=== PATIENT | female | born 1985 | race Caucasian/White ===

== ENCOUNTER 2017-03-13 13:06 | Inpatient (IN) | payer SELFPAY ==
[~2017-03-13] VITALS: Ht 170.1 cm; Wt 118.9 kg
--- NOTE | ~2017-03-13 | CON ---
[place], [place] REPORT OF CONSULTATION NAME: [facility] [id number] UNIT #: [id number] ROOM: 502 DOCTOR: NERY FRANCISCO MD BIRTHDATE: [birth year] DOS: 03/14/2017 REASON FOR CONSULTATION: Syncope. HISTORY OF PRESENT ILLNESS: The patient is a 32-year-old woman who does have a long history of anxiety and depression. She also has asthma and is being treated for COPD. She denies any previous history of heart attack or stroke. She believes that her sugar is low on occasion, although she is not being treated for diabetes. She believes that her blood pressure is frequently high when she is under stress. Yesterday, she was having lunch with family members. She states that everything was fine, but according to family members who were in the room while I was interviewing her, she was very upset over the fact that her brother had not shown up for work and this was casting bad light on her who had encouraged his employer to hire her brother. She apparently was yelling, swearing, etc. While this transpired, she began to feel lightheaded. She took her lunch dishes to a sink and stated that the room got dark and she fell to the floor. When she awakened, she was breathless and felt heavy in her chest, but this . Family members strongly encouraged her to go to the Emergency Room. She walked to her car, but fell indoor car because she became lightheaded again. Once she regained her composure, she drove herself to her mother's home and her mother drove over the rest of the way to the hospital. Symptoms have not recurred since that time. She has not had orthostatic hypotension in the hospital, but she does have episodes of hypertension. Laboratory studies showed no anemia. Blood sugar was 87. Electrolytes were normal. Magnesium level was normal. Serial troponin levels were normal. A serum test was negative. The patient was monitored overnight. Her electrocardiogram showed no acute changes. 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 There is no prolonged pause recorded and no tachyarrhythmia seen. PAST MEDICAL HISTORY: Includes: 1. Generalized anxiety disorder. The patient sees Dr. Cannon for this. 2. History of major depression. 3. COPD and asthma. 4. No history of diabetes, heart attack or stroke. 5. History of cigarette abuse. The patient has been abstinent of cigarettes for 2 years. FAMILY HISTORY: The patient's mother had a heart attack at age 43 and a stroke shortly thereafter. REVIEW OF SYSTEMS: The patient denies diplopia or loss of vision. She did have a syncopal episode documented above. She denies nausea or vomiting. She denies fevers, chills, sweats or recent weight change, but she is overweight. She denies orthopnea or PND. She denies focal weakness. She denies hemoptysis or hematemesis. She denies productive cough. She denies change in bowel or bladder habits. She denies hematuria or hematochezia. She denies any tarry [place], [place] REPORT OF CONSULTATION NAME: MIRIAM YANEZ UNIT #: [id number] ROOM: [facility] DOCTOR: NERY FRANCISCO MD BIRTHDATE: [birth year] stools. She denies peripheral edema, although she states that occasionally her ankles will look puffy if she has been . She denies any recent skin rashes. She denies that her medicines have been changed lately. MEDICATIONS: Include Symbicort 2 puffs daily, Zyrtec 10 mg daily, citalopram 60 mg daily, diazepam 5 mg p.r.n., Depakote 500 mg b.i.d., lamotrigine 25 mg tablets 2 tablets daily, omeprazole 40 mg daily, NuvaRing vaginal control monthly and albuterol p.r.n. by metered dose inhaler. ALLERGIES: SHE LISTS ALLERGIES TO CINNAMON, CLINDAMYCIN, SHELLFISH DERIVED PRODUCTS, PEAS AND ALSO HAS SEASONAL ALLERGIES. SOCIAL HISTORY: The patient is and lives with her . They have children. She was a smoker, but quit 2 years ago. She does not consume excessive amounts of alcohol. PHYSICAL EXAMINATION: GENERAL: The patient is an overweight white female who is awake, alert and oriented. VITAL SIGNS: Pulse is 76 and regular, blood pressure is 117/66. She is afebrile. She weighs 118.9 kg and has a body mass index of 41.1. HEENT: Normocephalic, atraumatic. Extraocular muscles are intact. Sclerae are clear. Pupils are equal, round and react to light. The oral mucosa is moist. Tongue is midline. NECK: Supple. She has no jugular distention. Carotids are full. I heard no bruits. She had no neck or supraclavicular masses. No thyromegaly. LUNGS: Respirations are unlabored. Her chest is clear to auscultation and percussion. She had no presacral edema and no chest wall tenderness. CARDIOVASCULAR: Her heart had a regular rhythm. She had no murmurs, rubs or gallops. The PMI was not displaced. There was no precordial heave, lift or thrill. ABDOMEN: Soft and normoactive without masses, organomegaly or bruits. EXTREMITIES: No edema. Peripheral pulses were easily palpated in the feet. IMAGING: I reviewed her electrocardiogram, which showed sinus rhythm and was a normal tracing. Chest x-ray was normal. CT scan of the head was unremarkable. LABORATORY DATA: Hemoglobin is 12.5, white count 7700, platelet count 305,000. Sodium 141, potassium 4.2, BUN 13, creatinine 0.69, magnesium 1.8. Troponin was negative x 3. Total beta hCG was unmeasurably low. IMPRESSION: 1. Syncopal episode, most likely vasovagal in origin (simple faint) triggered by an emotional response to family episode with her brother. 2. History of depression and anxiety. 3. History of chronic obstructive pulmonary disease. 4. Multiple medications for depression and anxiety, several of which (Celexa, valproic acid and Lamictal) can cause orthostatic hypotension or dizziness. I agree with Dr. Blandon that we should do an echocardiogram to check her for [place], [place] REPORT OF CONSULTATION NAME: MIRIAM YANEZ UNIT #: [id number] ROOM: 502 DOCTOR: NERY FRANCISCO MD BIRTHDATE: [birth year] structural heart disease. If that is normal, no further cardiac evaluation will be required as an inpatient. She may have a stress test as an outpatient if her symptoms of chest heaviness persisted, but I think that this would be a low yield study and would not keep her in the hospital to do this. We will review the results of her echocardiogram when it is available. In the meantime, I told her we will avoid caffeine, make sure she is hydrated well and discuss her medicines with her psychiatrist to see if adjustments are appropriate to help protect her from future events such as that they brought her to the hospital. I thank Dr. Blandon for asking our advice regarding her care. NERY FRANCISCO MD CM:CONSTR:REPORT OF CONSULTATION 1227 03/14/17 1623 interface
--- NOTE | ~2017-03-13 | WRIGHTHP ---
[place], [place] PATIENT HISTORY AND PHYSICAL EXAM NAME: MIRIAM YANEZ [facility] #: [id number] UNIT #: [id number] ROOM: 502 DOCTOR: SANDI LESTER MD BIRTHDATE: [birth year] DOS: 03/13/2017 HISTORY OF PRESENT ILLNESS: This patient is 32 years old. The patient is not known to me. She comes in after having a syncopal episode at home. The patient states that she felt slightly dizzy. She was eating after her lunch. She was in her kitchen, took the plate to the sink and next thing that she knew is she was on the floor. She woke up on the floor. She got up, called her mom and decided to go to the Emergency Room. On the way to her car, she had another episode which she almost blacked out and fell onto the car. She denies having any chest pains, palpitations, does not have any fever or chills, does not have any abdominal pain, nausea, emesis, does not have any lightheadedness, any blurred vision or double vision. PAST MEDICAL HISTORY: Significant for: 1. Chronic generalized anxiety disorder. 2. Major depression, mild. 3. History of tonsillectomy. MEDICATIONS: That she is on Symbicort 80/4.5 two puffs daily, Zyrtec 10 daily, Celexa she was on 60 mg daily, valproate 500 mg twice a day, diazepam 5 mg b.i.d., Lamictal 40 daily, omeprazole 40 daily, oral contraceptive daily. SOCIAL HISTORY: Nonsmoker, she quit smoking 2 years ago. Denies using any alcohol. She lives at home with her boyfriend. She does not have any children. FAMILY HISTORY: Her mother is in her 40s, has history of heart disease and a stroke. Father also has history of heart disease. One brother has palpitations. PHYSICAL EXAMINATION: GENERAL: On examination, she is awake, alert and oriented. VITAL SIGNS: Blood pressure is 117/66, pulse of 76, respirations 20, temperature 98.1. LUNGS: Diminished breath sounds, clear. HEART: Regular. No murmurs, gallops or rubs heard. ABDOMEN: Obese, soft. EXTREMITIES: Without any edema. No carotid bruit heard. ASSESSMENT AND PLAN: 1. The patient with a syncopal episode. The patient will be ordered an echocardiogram to rule out valvular heart disease. A cardiology consultation is obtained. Rule out MA protocol has come back negative. 2. Again, dizziness with syncopal episode. To rule out neurological causes of syncope, carotid Doppler will be ordered. CT of the head was negative. The patient was on high dose of citalopram, about 60 mg daily. The dosage was cut down to 20 mg. This may have caused some QT prolongation, but the EKG does not show any evidence of that today. Sinus rhythm is noted on the EKG. The patient is encouraged to follow with Dr. Dhaliwal and possibly cut down on her dose of citalopram as an outpatient. If the Cardiology clears, she can be discharged to home. [place], [place] PATIENT HISTORY AND PHYSICAL EXAM NAME: MIRIAM YANEZ UNIT #: [id number] ROOM: [facility] DOCTOR: SANDI LESTER MD BIRTHDATE: [birth year] SANDI LESTER MD CM:HISPHYS:PATIENT HISTORY AND PHYSICAL EXAMINATION 9 4 SANDI LESTER MD 03/14/17904 interface
[~2017-03-13 13:06] MED LIST: AEROSOL THERAPY1 DEV; AMOXIL500 MG PO; AUGMENTIN 875 M1 TA1 PO; AUGMENTIN 875875 MG PO; CELEXA20 MG PO; CIPRO750 MG PO; CLEOCIN HCL150 MG PO; CLEOCIN150 MG PO; CLINDAMYCIN HC300 MG PO; CYCLOBENZAPRINE10 MG PO; Duoneb 3ML 3 MG/3 ML NEB; EFFEXOR75 MG PO; EPIPEN 2-PAK1 MG/ML IJ; FLEXERIL10 MG PO; FLEXERIL5 MG PO; HYDROCODONE BIT1 T20 PO; IMITREX50 MG PO; MEDROL DOSEPAK4 MG PO; MOTRIN600 MG PO; Motrin,Rufen800 MG PO; NAPROSYN500 MG PO; NASONEX0.05 MG/AC NS; NUVARING1 ICR VG; PREDNISONE50 MG PO; PRILOSEC40 MG PO; PROAIR HFA0.09 MG/AC; Peridex 473 ML473 ML PO; ROBITUSSIN5 ML PO; SYMBICORT1 AER INH; VALIUM2 MG PO; VICODIN 5/500 505 MG PO; VOLTAREN50 M1 PO; ZITHROMAX250 MG PO; ZOFRAN ODT4 MG SL; ZYRTEC10 M2 PO
[2017-03-13 13:12] VITALS: BP 139/94
[2017-03-13] MEDS ORDERED: LAMOTRIGINE25 M1 PO (13:13)
[2017-03-13 13:23] LABS: BASO % 0.3 % (0.0-1.0); EOS # 0.2 10*3/uL (0.0-0.4); EOS % 2.5 % (1.0-4.0); HEMATOCRIT 37.2 % (37.0-47.0); HEMOGLOBIN 12.5 g/dl (12.0-16.0); LYMPH # 3.1 10*3/uL (1.3-4.4); LYMPH % 40.8 % (27.0-41.0); MEAN CELL VOLUME 88.8 fl (81.0-99.0); MEAN CORPUSCULAR HGB 29.8 pg (27.0-31.0); MEAN CORPUSCULAR HGB CONC 33.6 g/dl (33.0-37.0); MEAN PLATELET VOLUME 9.5 fl (9.6-12.3); MONO # 0.6 10*3/uL (0.1-1.0); MONO % 7.2 % (3.0-9.0); NEUT # 3.8 10*3/uL (2.3-7.9); NEUT % 49.1 % (47.0-73.0); PLATELET COUNT AUTOMATED 305 10*3/uL (130-400); RED BLOOD COUNT 4.19 10*6/uL (4.10-5.10); RED CELL DISTRI WIDTH 11.8 % (0-14.5); WHITE BLOOD COUNT 7.7 10*3/uL (4.8-10.8)
[2017-03-13 13:33] LABS: PROTHROMBIN TIME 10.2 SECONDS (9.0-12.4)
[2017-03-13 13:40] LABS: ALBUMIN 3.7 gm/dl (3.1-4.5); ALKALINE PHOSPHATASE 56 U/L (45-117); BILIRUBIN, TOTAL 0.4 mg/dl (0.2-1.0); BUN 13 mg/dl (7-24); CARBON DIOXIDE 24 mmol/L (21-32); CHLORIDE 105 mmol/L (98-107); EST GLOM FILT AFRICAN AMERICAN > 60 ml/min; GLUCOSE 87 mg/dL (65-99); MAGNESIUM 1.8 mg/dL (1.5-2.1); POTASSIUM 4.2 mmol/L (3.5-5.1); SGOT/AST 16 IU/L (3-35); SGPT/ALT 21 U/L (12-78); SODIUM 141 mmol/L (136-145); TOTAL PROTEIN 7.5 gm/dL (6.4-8.2)
[2017-03-13 13:41] LABS: TROPONIN I < 0.015 ng/ml (<0.045)
[2017-03-13 13:52] VITALS: BP 114/73
[2017-03-13 14:12] LABS: BILIRUBIN NEGATIVE (NEGATIVE); BLOOD NEGATIVE (NEGATIVE); CLARITY CLEAR (CLEAR); COLOR YELLOW (YELLOW); GLUCOSE NEGATIVE (NEGATIVE); KETONE NEGATIVE (NEGATIVE); LEUKO ESTERASE NEGATIVE (NEGATIVE); NITRITE NEGATIVE (NEGATIVE); PROTEIN NEGATIVE (NEGATIVE); UROBILINOGEN 0.2 E.U./dl (0.2-1.0)
[2017-03-13 14:18] LABS: BACTERIA 1+; RBC 0-2 rbc/hpf (0-2); URINE REFLEX COMMENT NO (NO)
[2017-03-13 16:00] VITALS: BP 119/75
[2017-03-13 18:00] VITALS: BP 123/87
[2017-03-13] MEDS ORDERED: DEPAKOTE500 MG PO (18:01)
[2017-03-14] VITALS: BP 162/91
[2017-03-14 00:16] VITALS: BP 130/72
[2017-03-14 04:03] VITALS: BP 154/71
[2017-03-14 08:00] VITALS: BP 117/66
[2017-03-14 12:00] VITALS: BP 128/69
[2017-03-14 16:00] VITALS: BP 126/70
== END 2017-03-14 17:24 | disposition home or self-care (01) | DRG 312 ==
LOC: ED 13:06 → 5E 15:19 → EDHOLD 15:19 → 5E 16:26
PROVIDERS: Emergency Medicine; Student in an Organized Health Care Education/Training Program
DX: R55 Syncope and collapse (principal); F32.9 Major depressive disorder, single episode, unspecified; R42 Dizziness and giddiness; J44.9 Chronic obstructive pulmonary disease, unspecified; F41.9 Anxiety disorder, unspecified; Z82.49 Family history of ischemic heart disease and other diseases of the circulatory system; Z82.3 Family history of stroke; Z88.1 Allergy status to other antibiotic agents; Z88.8 Allergy status to other drugs, medicaments and biological substances; Z91.013 Allergy to seafood; Z91.018 Allergy to other foods; Z87.891 Personal history of nicotine dependence

== ENCOUNTER 2017-03-25 17:06 | Emergency (ER) | payer SELFPAY ==
[~2017-03-25] VITALS: Ht 170.1 cm; Wt 117.9 kg
[~2017-03-25 17:06] MED LIST changes: +DEPAKOTE500 MG PO; +LAMOTRIGINE25 M1 PO
[2017-03-25 17:49] LABS: BASO % 0.1 % (0.0-1.0); EOS % 0.5 % (1.0-4.0); HEMATOCRIT 35.7 % (37.0-47.0); HEMOGLOBIN 11.9 g/dl (12.0-16.0); LYMPH # 2.9 10*3/uL (1.3-4.4); MEAN CELL VOLUME 90.8 fl (81.0-99.0); MEAN CORPUSCULAR HGB 30.3 pg (27.0-31.0); MEAN CORPUSCULAR HGB CONC 33.3 g/dl (33.0-37.0); MEAN PLATELET VOLUME 9.2 fl (9.6-12.3); MONO # 0.6 10*3/uL (0.1-1.0); MONO % 8.1 % (3.0-9.0); NEUT # 4.2 10*3/uL (2.3-7.9); PLATELET COUNT AUTOMATED 285 10*3/uL (130-400); RED BLOOD COUNT 3.93 10*6/uL (4.10-5.10); RED CELL DISTRI WIDTH 11.7 % (0-14.5); WHITE BLOOD COUNT 7.8 10*3/uL (4.8-10.8)
[2017-03-25 18:00] LABS: PROTHROMBIN TIME 10.1 SECONDS (9.0-12.4)
[2017-03-25 18:07] LABS: ALBUMIN 3.3 gm/dl (3.1-4.5); ALKALINE PHOSPHATASE 54 U/L (45-117); BILIRUBIN, TOTAL 0.2 mg/dl (0.2-1.0); BUN 17 mg/dl (7-24); C-REACTIVE PROTEIN 1.67 MG/DL (0-0.3); CARBON DIOXIDE 24 mmol/L (21-32); CHLORIDE 107 mmol/L (98-107); CPK 110 U/L (26-192); EST GLOM FILT AFRICAN AMERICAN > 60 ml/min; GLUCOSE 90 mg/dL (65-99); MAGNESIUM 2.1 mg/dL (1.5-2.1); POTASSIUM 4.3 mmol/L (3.5-5.1); SGOT/AST 18 IU/L (3-35); SGPT/ALT 24 U/L (12-78); SODIUM 139 mmol/L (136-145); TOTAL PROTEIN 6.9 gm/dL (6.4-8.2)
[2017-03-25 18:08] LABS: CKMB < 0.5 ng/ml (0.5-3.6); TROPONIN I < 0.015 ng/ml (<0.045)
== END 2017-03-26 04:06 | disposition short-term general hospital (02) ==
LOC: ED 17:06
PROVIDERS: Emergency Medicine
DX: R55 Syncope and collapse (principal); R42 Dizziness and giddiness; R06.02 Shortness of breath; I10 Essential (primary) hypertension; J45.909 Unspecified asthma, uncomplicated; Z88.1 Allergy status to other antibiotic agents; Z91.013 Allergy to seafood; Z91.010 Allergy to peanuts; Z91.018 Allergy to other foods; Z79.899 Other long term (current) drug therapy

== ENCOUNTER → 2017-04-24 | Outpatient (CLI) | payer OTHER ==
[2017-04-24 16:16] LABS: HEMATOCRIT 34.3 % (37.0-47.0); HEMOGLOBIN 11.7 g/dl (12.0-16.0); MEAN CELL VOLUME 89.1 fl (81.0-99.0); MEAN CORPUSCULAR HGB 30.4 pg (27.0-31.0); MEAN CORPUSCULAR HGB CONC 34.1 g/dl (33.0-37.0); MEAN PLATELET VOLUME 9.4 fl (9.6-12.3); RED BLOOD COUNT 3.85 10*6/uL (4.10-5.10); RED CELL DISTRI WIDTH 11.9 % (0-14.5); WHITE BLOOD COUNT 9.7 10*3/uL (4.8-10.8)
[2017-04-24 16:35] LABS: HEMOGLOBIN A1c 5.5 % (4.8-5.6)
[2017-04-24 16:46] LABS: ALBUMIN 3.6 gm/dl (3.1-4.5); ALKALINE PHOSPHATASE 54 U/L (45-117); BILIRUBIN, TOTAL 0.3 mg/dl (0.2-1.0); BUN 14 mg/dl (7-24); CARBON DIOXIDE 22 mmol/L (21-32); CHLORIDE 106 mmol/L (98-107); EST GLOM FILT AFRICAN AMERICAN > 60 ml/min; GLUCOSE 75 mg/dL (65-99); POTASSIUM 3.7 mmol/L (3.5-5.1); SGOT/AST 21 IU/L (3-35); SGPT/ALT 20 U/L (12-78); SODIUM 141 mmol/L (136-145)
[2017-04-24 16:52] LABS: THYROID STIM HORMONE (HS) 0.657 uIU/ml (0.358-4.75)
[2017-04-25 05:15] LABS: FREE T3 010389 3.6 pg/mL (2.0-4.4)
[2017-04-25 18:06] LABS: TESTOSTERONE FREE, (DIRECT) 0.4 pg/mL (0.0-4.2)
== END | disposition home or self-care (01) ==
LOC: LAB 16:03
PROVIDERS: Family Medicine
DX: E16.2 Hypoglycemia, unspecified (principal); R53.83 Other fatigue; E66.9 Obesity, unspecified

== ENCOUNTER → 2017-04-28 | Outpatient (CLI) | payer OTHER ==
[2017-04-29 09:10] LABS: RHEUMATOID ARTHRITIS FACTOR <10.0 IU/mL (0.0-13.9)
[2017-04-29 14:07] LABS: LYME AB/TOTAL IMMUNOGLOBULINS <0.91 ISR (0.00-0.90)
[2017-04-29 18:09] LABS: ARSENIC BLOOD 8 ug/L (2-23)
== END | disposition home or self-care (01) ==
LOC: LAB 16:41
PROVIDERS: Family Medicine
DX: E55.9 Vitamin D deficiency, unspecified (principal); R53.83 Other fatigue; R06.02 Shortness of breath; M79.1 Myalgia; M25.50 Pain in unspecified joint

== ENCOUNTER 2017-05-20 17:36 | Emergency (ER) | payer OTHER ==
[~2017-05-20] VITALS: Ht 172.7 cm; Wt 117.9 kg
[2017-05-20 18:16] LABS: BASO % 0.2 % (0.0-1.0); EOS # 0.3 10*3/uL (0.0-0.4); EOS % 3.1 % (1.0-4.0); HEMATOCRIT 38.7 % (37.0-47.0); HEMOGLOBIN 13.2 g/dl (12.0-16.0); LYMPH # 3.6 10*3/uL (1.3-4.4); LYMPH % 38.4 % (27.0-41.0); MEAN CELL VOLUME 87.8 fl (81.0-99.0); MEAN CORPUSCULAR HGB 29.9 pg (27.0-31.0); MEAN CORPUSCULAR HGB CONC 34.1 g/dl (33.0-37.0); MEAN PLATELET VOLUME 9.3 fl (9.6-12.3); MONO # 0.7 10*3/uL (0.1-1.0); MONO % 6.9 % (3.0-9.0); NEUT # 4.8 10*3/uL (2.3-7.9); NEUT % 51.2 % (47.0-73.0); PLATELET COUNT AUTOMATED 281 10*3/uL (130-400); RED BLOOD COUNT 4.41 10*6/uL (4.10-5.10); WHITE BLOOD COUNT 9.4 10*3/uL (4.8-10.8)
[2017-05-20 18:33] LABS: ALBUMIN 4.1 gm/dl (3.1-4.5); ALKALINE PHOSPHATASE 60 U/L (45-117); BILIRUBIN, TOTAL 0.4 mg/dl (0.2-1.0); BUN 13 mg/dl (7-24); CARBON DIOXIDE 25 mmol/L (21-32); CHLORIDE 103 mmol/L (98-107); EST GLOM FILT AFRICAN AMERICAN > 60 ml/min; GLUCOSE 85 mg/dL (65-99); POTASSIUM 3.6 mmol/L (3.5-5.1); SGOT/AST 18 IU/L (3-35); SGPT/ALT 23 U/L (12-78); SODIUM 137 mmol/L (136-145); TOTAL PROTEIN 7.9 gm/dL (6.4-8.2)
[2017-05-20 18:34] LABS: TROPONIN I < 0.015 ng/ml (<0.045)
[2017-05-20] MEDS ORDERED: NORVASC5 MG PO (22:20)
== END 2017-05-20 23:53 | disposition home or self-care (01) ==
LOC: ED 17:36
PROVIDERS: Emergency Medicine
DX: I10 Essential (primary) hypertension (principal); R00.2 Palpitations; R06.02 Shortness of breath; J45.909 Unspecified asthma, uncomplicated; Z91.018 Allergy to other foods; Z91.013 Allergy to seafood; Z91.010 Allergy to peanuts; Z79.899 Other long term (current) drug therapy

== ENCOUNTER 2017-05-27 20:31 | Emergency (ER) | payer OTHER ==
[~2017-05-27] VITALS: Ht 170.1 cm; Wt 117.9 kg
[~2017-05-27 20:31] MED LIST changes: +NORVASC5 MG PO
[2017-05-27] MEDS ORDERED: MEDROL DOSEPAK4 MG PO (23:46)
[2017-05-27] MEDS ORDERED: EPIPEN 2-P0.3 MG/0.3 IJ (23:47)
== END 2017-05-28 00:02 | disposition home or self-care (01) ==
LOC: ED 20:31
DX: T78.1XXA Other adverse food reactions, not elsewhere classified, initial encounter (principal); Z79.899 Other long term (current) drug therapy; Z88.1 Allergy status to other antibiotic agents; Z91.013 Allergy to seafood; Y92.9 Unspecified place or not applicable

== ENCOUNTER 2018-05-03 20:24 | Emergency (ER) | payer OTHER ==
[~2018-05-03] VITALS: Ht 170.1 cm; Wt 117.9 kg
[~2018-05-03 20:24] MED LIST changes: +EPIPEN 2-P0.3 MG/0.3 IJ
== END 2018-05-03 21:17 | disposition home or self-care (01) ==
LOC: ED 20:24
DX: S66.912A Strain of unspecified muscle, fascia and tendon at wrist and hand level, left hand, initial encounter (principal); Z79.899 Other long term (current) drug therapy; Z91.013 Allergy to seafood; Z88.1 Allergy status to other antibiotic agents; X50.1XXA Overexertion from prolonged static or awkward postures, initial encounter; Y93.89 Activity, other specified; Y92.89 Other specified places as the place of occurrence of the external cause; Y99.9 Unspecified external cause status

== ENCOUNTER 2018-06-24 16:54 | Emergency (ER) | payer OTHER ==
[~2018-06-24] VITALS: Wt 117.0 kg
[2018-06-24 17:51] LABS: EOS % 0.2 % (1.0-4.0); HEMATOCRIT 36.6 % (37.0-47.0); HEMOGLOBIN 12.1 g/dl (12.0-16.0); LYMPH # 1.8 10*3/uL (1.3-4.4); LYMPH % 32.4 % (27.0-41.0); MEAN CELL VOLUME 88.8 fl (81.0-99.0); MEAN CORPUSCULAR HGB 29.4 pg (27.0-31.0); MEAN CORPUSCULAR HGB CONC 33.1 g/dl (33.0-37.0); MEAN PLATELET VOLUME 9.1 fl (9.6-12.3); MONO # 0.5 10*3/uL (0.1-1.0); MONO % 9.2 % (3.0-9.0); NEUT # 3.2 10*3/uL (2.3-7.9); PLATELET COUNT AUTOMATED 310 10*3/uL (130-400); RED BLOOD COUNT 4.12 10*6/uL (4.10-5.10); RED CELL DISTRI WIDTH 12.9 % (0-14.5); WHITE BLOOD COUNT 5.6 10*3/uL (4.8-10.8)
[2018-06-24 18:07] LABS: ALBUMIN 3.8 gm/dl (3.1-4.5); ALKALINE PHOSPHATASE 59 U/L (45-117); BUN 9 mg/dl (7-24); CHLORIDE 108 mmol/L (98-107); LIPASE 126 U/L (73-393); POTASSIUM 3.9 mmol/L (3.5-5.1); SGOT/AST 16 IU/L (3-35); SGPT/ALT 29 U/L (12-78); SODIUM 141 mmol/L (136-145); TOTAL PROTEIN 7.8 gm/dL (6.4-8.2)
[2018-06-24 18:16] LABS: BILIRUBIN NEGATIVE (NEGATIVE); BLOOD TRACE-INTACT (NEGATIVE); CLARITY SL CLOUDY (CLEAR); COLOR YELLOW (YELLOW); GLUCOSE NEGATIVE (NEGATIVE); KETONE NEGATIVE (NEGATIVE); LEUKO ESTERASE NEGATIVE (NEGATIVE); NITRITE NEGATIVE (NEGATIVE); SPECIFIC GRAVITY 1.025 (1.005-1.030); UROBILINOGEN 0.2 E.U./dl (0.2-1.0)
[2018-06-24 18:23] LABS: BACTERIA 2+; RBC 0-2 rbc/hpf (0-2); WBC 0-2 wbc/hpf (0-5)
[2018-06-24] MEDS ORDERED: ZOFRAN ODT4 MG SL (19:04)
[2018-06-24] MEDS ORDERED: ALLEGRA ALLERG180 M2 PO (19:06)
[2018-06-24] MEDS ORDERED: FLONASE ALLERG9.9 ML NAS (19:06)
== END 2018-06-24 19:35 | disposition home or self-care (01) ==
LOC: ED 16:54
PROVIDERS: Physician Assistant
DX: R11.2 Nausea with vomiting, unspecified (principal); R19.7 Diarrhea, unspecified; H69.81 Other specified disorders of Eustachian tube, right ear; H92.01 Otalgia, right ear; R63.0 Anorexia; Z91.013 Allergy to seafood; Z88.1 Allergy status to other antibiotic agents; Z91.018 Allergy to other foods; Z79.899 Other long term (current) drug therapy

== ENCOUNTER 2018-12-10 23:50 | Emergency (ER) | payer OTHER ==
[~2018-12-10] VITALS: Ht 170.1 cm; Wt 123.8 kg
[~2018-12-10 23:50] MED LIST changes: +ALLEGRA ALLERG180 M2 PO; +FLONASE ALLERG9.9 ML NAS
[2018-12-11 00:42] LABS: BASO % 0.2 % (0.0-1.0); EOS % 0.2 % (1.0-4.0); HEMATOCRIT 39.1 % (37.0-47.0); HEMOGLOBIN 12.9 g/dl (12.0-16.0); LYMPH # 2.8 10*3/uL (1.3-4.4); LYMPH % 32.2 % (27.0-41.0); MEAN CELL VOLUME 89.5 fl (81.0-99.0); MEAN CORPUSCULAR HGB 29.5 pg (27.0-31.0); MEAN PLATELET VOLUME 9.5 fl (9.6-12.3); MONO # 0.9 10*3/uL (0.1-1.0); MONO % 10.2 % (3.0-9.0); NEUT # 4.9 10*3/uL (2.3-7.9); PLATELET COUNT AUTOMATED 348 10*3/uL (130-400); RED BLOOD COUNT 4.37 10*6/uL (4.10-5.10); RED CELL DISTRI WIDTH 12.3 % (0-14.5); WHITE BLOOD COUNT 8.6 10*3/uL (4.8-10.8)
[2018-12-11 01:01] LABS: ALBUMIN 4.2 gm/dl (3.1-4.5); ALKALINE PHOSPHATASE 65 U/L (45-117); BUN 11 mg/dl (7-24); CHLORIDE 107 mmol/L (98-107); CREATININE 0.81 mg/dL (0.55-1.02); LIPASE 109 U/L (73-393); POTASSIUM 3.7 mmol/L (3.5-5.1); SGOT/AST 13 IU/L (3-35); SGPT/ALT 28 U/L (12-78); SODIUM 140 mmol/L (136-145); TOTAL PROTEIN 7.9 gm/dL (6.4-8.2)
[2018-12-11 01:08] LABS: BILIRUBIN NEGATIVE (NEGATIVE); BLOOD 1+ (NEGATIVE); CLARITY SL CLOUDY (CLEAR); COLOR YELLOW (YELLOW); GLUCOSE NEGATIVE (NEGATIVE); KETONE NEGATIVE (NEGATIVE); LEUKO ESTERASE NEGATIVE (NEGATIVE); NITRITE NEGATIVE (NEGATIVE); PH 7.5 (5.0-9.0); UROBILINOGEN 0.2 E.U./dl (0.2-1.0)
[2018-12-11 01:22] LABS: BACTERIA 2+; WBC 0-2 wbc/hpf (0-5)
== END 2018-12-11 02:06 | disposition home or self-care (01) ==
LOC: ED 23:50
PROVIDERS: Physician Assistant
DX: G43.909 Migraine, unspecified, not intractable, without status migrainosus (principal); R11.2 Nausea with vomiting, unspecified; R19.7 Diarrhea, unspecified; Z79.899 Other long term (current) drug therapy; Z88.1 Allergy status to other antibiotic agents; Z91.013 Allergy to seafood

== ENCOUNTER 2019-04-01 19:58 | Emergency (ER) | payer SELFPAY ==
[2019-04-01] MEDS ORDERED: AMOXICILLIN500 M2 PO (22:37)
== END 2019-04-01 23:20 | disposition home or self-care (01) ==
LOC: ED 19:58
DX: J06.9 Acute upper respiratory infection, unspecified (principal); J02.9 Acute pharyngitis, unspecified; H66.91 Otitis media, unspecified, right ear; G43.909 Migraine, unspecified, not intractable, without status migrainosus; J45.909 Unspecified asthma, uncomplicated; I10 Essential (primary) hypertension; Z91.048 Other nonmedicinal substance allergy status; Z91.018 Allergy to other foods; Z88.1 Allergy status to other antibiotic agents; Z91.013 Allergy to seafood; Z79.899 Other long term (current) drug therapy

== ENCOUNTER 2019-10-01 14:21 | Emergency (ER) | payer OTHER ==
[~2019-10-01] VITALS: Ht 170.1 cm; Wt 122.5 kg
[~2019-10-01 14:21] MED LIST changes: +AMOXICILLIN500 M2 PO
[2019-10-01] MEDS ORDERED: TAMIFLU 75MG CA75 MG PO (15:59)
== END 2019-10-01 16:13 | disposition home or self-care (01) ==
LOC: ED 14:21
DX: J10.1 Influenza due to other identified influenza virus with other respiratory manifestations (principal); J45.909 Unspecified asthma, uncomplicated; Z91.048 Other nonmedicinal substance allergy status; Z91.018 Allergy to other foods; Z91.010 Allergy to peanuts; Z91.013 Allergy to seafood; Z79.2 Long term (current) use of antibiotics; Z79.899 Other long term (current) drug therapy

== ENCOUNTER 2019-10-18 11:49 | Emergency (ER) | payer OTHER ==
[~2019-10-18] VITALS: Ht 170.1 cm; Wt 104.3 kg
[~2019-10-18 11:49] MED LIST changes: +TAMIFLU 75MG CA75 MG PO
== END 2019-10-18 14:51 | disposition home or self-care (01) ==
LOC: ED 11:49
DX: M25.552 Pain in left hip (principal); J45.909 Unspecified asthma, uncomplicated; Z91.013 Allergy to seafood; Z88.1 Allergy status to other antibiotic agents; Z91.048 Other nonmedicinal substance allergy status; Z91.018 Allergy to other foods; Z79.2 Long term (current) use of antibiotics; Z79.899 Other long term (current) drug therapy; Z87.891 Personal history of nicotine dependence

== ENCOUNTER 2019-12-04 18:58 | Emergency (ER) | payer OTHER ==
[2019-12-04] MEDS ORDERED: CLARITIN10 MG PO (19:20)
[2019-12-04] MEDS ORDERED: AUGMENTIN 875-875 MG PO (19:20)
[2019-12-04] MEDS ORDERED: FLONASE ALLERG9.9 ML NAS (19:20)
== END 2019-12-04 19:22 | disposition home or self-care (01) ==
LOC: ED 18:58
DX: J01.90 Acute sinusitis, unspecified (principal); J45.909 Unspecified asthma, uncomplicated; Z91.018 Allergy to other foods; Z91.013 Allergy to seafood; Z88.1 Allergy status to other antibiotic agents; Z88.8 Allergy status to other drugs, medicaments and biological substances; Z79.2 Long term (current) use of antibiotics; Z79.899 Other long term (current) drug therapy

== ENCOUNTER → 2020-04-05 | Outpatient (CLI) | payer OTHER ==
[~2020-04-05] MED LIST changes: +AUGMENTIN 875-875 MG PO; +CLARITIN10 MG PO
== END | disposition home or self-care (01) ==
LOC: US 14:52
DX: N92.1 Excessive and frequent menstruation with irregular cycle (principal); Z97.5 Presence of (intrauterine) contraceptive device

== ENCOUNTER 2020-10-16 16:41 | Emergency (ER) | payer SELFPAY ==
[~2020-10-16] VITALS: Ht 170.1 cm; Wt 116.1 kg
[2020-10-16] MEDS ORDERED: PREDNISONE20 M1 PO (21:31)
[2020-10-16] MEDS ORDERED: ROBAXIN-750750 MG PO (21:31)
== END 2020-10-16 21:45 | disposition home or self-care (01) ==
LOC: ED 16:41
DX: M54.12 Radiculopathy, cervical region (principal); J45.909 Unspecified asthma, uncomplicated; F17.200 Nicotine dependence, unspecified, uncomplicated; Z91.018 Allergy to other foods; Z88.1 Allergy status to other antibiotic agents; Z91.013 Allergy to seafood; Z79.899 Other long term (current) drug therapy; Z79.2 Long term (current) use of antibiotics; Z86.14 Personal history of Methicillin resistant Staphylococcus aureus infection

== ENCOUNTER → 2021-04-20 | Outpatient (CLI) | payer BC ==
[~2021-04-20] MED LIST changes: +PREDNISONE20 M1 PO; +ROBAXIN-750750 MG PO
== END | disposition home or self-care (01) ==
LOC: US 13:00
PROVIDERS: ATTEND Nurse Practitioner Women's Health
DX: R10.2 Pelvic and perineal pain (principal); Z97.5 Presence of (intrauterine) contraceptive device

== ENCOUNTER 2021-06-22 19:04 | Emergency (ER) | payer OTHER ==
[~2021-06-22] VITALS: Ht 172.7 cm; Wt 125.2 kg
[2021-06-22] MEDS ORDERED: PROPRANOLOL HYD10 MG PO (20:47)
== END 2021-06-22 23:38 | disposition left against medical advice (07) ==
LOC: ED 19:04
DX: R06.02 Shortness of breath (principal); Z53.21 Procedure and treatment not carried out due to patient leaving prior to being seen by health care provider

== ENCOUNTER → 2022-12-18 | Day surgery (SDC) | payer OTHER ==
[~2022-12-18] VITALS: Ht 167.6 cm; Wt 128.4 kg
[~2022-12-18] MED LIST changes: +ASPIRIN ADULT L81 M1 PO; +GABAPENTIN600 MG PO; +LIPITOR80 MG PO; +NORVASC2.5 MG PO; +OFLOXACIN OTIC5 ML OT; +PROPRANOLOL HYD10 MG PO; +ZANAFLEX2 M1 PO
[2022-12-18 08:51] VITALS: BP 133/86
[2022-12-18 09:45] VITALS: BP 118/67
[2022-12-18 09:58] VITALS: BP 121/77
[2022-12-18 10:10] VITALS: BP 132/83
== END | disposition home or self-care (01) ==
LOC: SDC 12-13 11:00
PROVIDERS: ATTEND Specialist
DX: H65.493 Other chronic nonsuppurative otitis media, bilateral (principal); I10 Essential (primary) hypertension; F41.9 Anxiety disorder, unspecified; F32.A Depression, unspecified; J45.909 Unspecified asthma, uncomplicated; E78.00 Pure hypercholesterolemia, unspecified

== ENCOUNTER 2024-01-21 10:17 | Emergency (ER) | payer BC ==
[~2024-01-21] VITALS: Ht 170.1 cm; Wt 139.7 kg
[2024-01-21] MEDS ORDERED: BACLOFEN5 MG PO (10:48)
[2024-01-21 10:54] LABS: BASO % 0.3 % (0.0-1.0); EOS % 0.2 % (1.0-4.0); HEMATOCRIT 39.3 % (37.0-47.0); LYMPH # 1.8 10*3/uL (1.3-4.4); LYMPH % 29.4 % (27.0-41.0); MEAN CELL VOLUME 90.8 fl (81.0-99.0); MEAN CORPUSCULAR HGB CONC 33.1 g/dl (33.0-37.0); MEAN PLATELET VOLUME 9.2 fl (9.6-12.3); MONO # 0.5 10*3/uL (0.1-1.0); MONO % 8.6 % (3.0-9.0); NEUT # 3.8 10*3/uL (2.3-7.9); NEUT % 61.2 % (47.0-73.0); PLATELET COUNT AUTOMATED 306 10*3/uL (130-400); RED BLOOD COUNT 4.33 10*6/uL (4.10-5.10); RED CELL DISTRI WIDTH 12.2 % (0-14.5); WHITE BLOOD COUNT 6.2 10*3/uL (4.8-10.8)
[2024-01-21] MEDS ORDERED: CLARITIN10 MG PO (10:54)
[2024-01-21] MEDS ORDERED: DULOXETINE HCL60 MG PO (11:05)
[2024-01-21] MEDS ORDERED: APRESOLINE10 MG PO (11:05)
[2024-01-21] MEDS ORDERED: RIZATRIPTAN10 M1 PO (11:07)
[2024-01-21] MEDS ORDERED: NABUMETONE750 M1 PO (11:10)
[2024-01-21 11:17] LABS: ACT PARTIAL THROMBO TIME 25.6 SECONDS (20.0-32.1)
[2024-01-21 11:21] LABS: ALKALINE PHOSPHATASE 58 U/L (46-116); BUN 10 mg/dl (9-23); CHLORIDE 106 mmol/L (98-107); LIPASE 42 U/L (12-53); SGPT/ALT 42 U/L (5-49); TOTAL PROTEIN 7.2 gm/dL (6.0-8.0)
== END 2024-01-21 13:00 | disposition home or self-care (01) ==
LOC: ED 10:17
PROVIDERS: Internal Medicine
DX: R07.89 Other chest pain (principal); T46.1X5A Adverse effect of calcium-channel blockers, initial encounter; F41.9 Anxiety disorder, unspecified; F32.A Depression, unspecified; E78.00 Pure hypercholesterolemia, unspecified; I10 Essential (primary) hypertension; Z88.8 Allergy status to other drugs, medicaments and biological substances; Z91.010 Allergy to peanuts; Z91.013 Allergy to seafood; Z90.89 Acquired absence of other organs; Z98.890 Other specified postprocedural states; Y92.89 Other specified places as the place of occurrence of the external cause

== ENCOUNTER 2024-12-25 23:05 | Emergency (ER) | payer OTHER ==
[~2024-12-25] VITALS: Ht 170.2 cm; Wt 131.1 kg
[~2024-12-25 23:05] MED LIST changes: +APRESOLINE10 MG PO; +BACLOFEN5 MG PO; +DULOXETINE HCL60 MG PO; +NABUMETONE750 M1 PO; +RIZATRIPTAN10 M1 PO
[2024-12-25] MEDS ORDERED: TOPIRAMATE50 M2 PO (23:18)
[2024-12-26 00:16] LABS: BASO % 0.2 % (0.0-1.0); EOS % 0.5 % (1.0-4.0); HEMATOCRIT 39.4 % (37.0-47.0); MEAN CELL VOLUME 89.1 fl (81.0-99.0); MEAN CORPUSCULAR HGB 29.9 pg (27.0-31.0); MEAN CORPUSCULAR HGB CONC 33.5 g/dl (33.0-37.0); MEAN PLATELET VOLUME 9.4 fl (9.6-12.3); MONO # 0.4 10*3/uL (0.1-1.0); MONO % 6.9 % (3.0-9.0); NEUT # 3.5 10*3/uL (2.3-7.9); NEUT % 55.1 % (47.0-73.0); PLATELET COUNT AUTOMATED 298 10*3/uL (130-400); RED BLOOD COUNT 4.42 10*6/uL (4.10-5.10); RED CELL DISTRI WIDTH 12.4 % (0-14.5); WHITE BLOOD COUNT 6.4 10*3/uL (4.8-10.8)
[2024-12-26 00:36] LABS: BUN 13 mg/dl (9-23); CHLORIDE 108 mmol/L (98-107); POTASSIUM 3.5 mmol/L (3.4-5.1)
[2024-12-26] MEDS ORDERED: hydrOXYzine pamoate 25 MG CAP PO ONE (00:55)
== END 2024-12-26 01:01 | disposition home or self-care (01) ==
LOC: ED 23:05
PROVIDERS: Internal Medicine
DX: F41.9 Anxiety disorder, unspecified (principal); J45.909 Unspecified asthma, uncomplicated; Z91.018 Allergy to other foods; Z88.1 Allergy status to other antibiotic agents; Z91.013 Allergy to seafood; Z79.899 Other long term (current) drug therapy; Z79.82 Long term (current) use of aspirin

== ENCOUNTER → 2025-02-23 | Outpatient (CLI) | payer OTHER ==
[~2025-02-23] MED LIST changes: +TOPIRAMATE50 M2 PO
[2025-02-23 09:53] LABS: ALKALINE PHOSPHATASE 54 U/L (46-116); BUN 14 mg/dl (9-23); CHLORIDE 110 mmol/L (98-107); CHOLESTEROL 105 mg/dL (<200); LDL CHOLESTEROL 47 mg/dL (9-159); POTASSIUM 3.7 mmol/L (3.4-5.1); SGPT/ALT 19 U/L (5-49); TOTAL PROTEIN 7.5 gm/dL (6.0-8.0); TRIGLYCERIDES 113 mg/dl (<150)
== END | disposition home or self-care (01) ==
LOC: LAB 08:50
PROVIDERS: ATTEND Physician Assistant
DX: E78.5 Hyperlipidemia, unspecified (principal); R73.03 Prediabetes; R63.5 Abnormal weight gain

== ENCOUNTER → 2025-03-08 | Outpatient (CLI) | payer OTHER | END | disposition home or self-care (01) | LOC: LAB 17:07 | PROVIDERS: ATTEND Physician Assistant | DX: E78.5 Hyperlipidemia, unspecified (principal); R63.5 Abnormal weight gain ==